=== PATIENT | male | born 1965 | race African-American/Black ===

== ENCOUNTER 2018-08-02 23:50 | Emergency (ER) | payer MEDICAID ==
--- NOTE | 2018-08-03 00:39 | EDM.PDOC ---
ED HPI GENERAL MEDICAL PROBLEM - General Chief Complaint: Lower Extremity Injury/Pain Stated Complaint: [facility] Time Seen by Provider: 08/03/18 00:03 Source of Information: Reports: Patient, RN Notes Reviewed - History of Present Illness INITIAL COMMENTS - FREE TEXT/NARRATIVE: patient scratched, removed a scab from lesion R lower leg, started "spurting blood" EMS called, applied a pressure dressing and it stopped. No hx of unusual bleeding problems. BP noted to be somewhat high, not on anything for Htn. Is on his feet a lot with his work Treatments RN FLOAT: Reports: Other Medication(s) - Related Data Allergies Allergy/AdvReac Type Severity Reaction Status Date / Time No Known Allergies Allergy Verified 08/02/18 23:59 Home Meds: Home Meds . [No Known Home Meds] 08/02/18 [History] Past Medical History - Past Health History Medical/Surgical History: Denies Medical/Surgical History Social & Family History - Family History Family Medical History: Noncontributory - Tobacco Use Smoking Status *Q: Current Every Day Smoker Years of Tobacco use: 41 Packs/Tins Daily: 0.2 Used Tobacco, but Quit: No - Caffeine Use Caffeine Use: Reports: Coffee - Alcohol Use Days Per Week of Alcohol Use: 3 Number of Drinks Per Day: 4 Total Drinks Per Week: 12 Date of Last Drink: 08/03/18 - Recreational Drug Use Recreational Drug Use: Yes Recreational Drug Type: Reports: Marijuana/Hashish Recreational Drug Use Frequency: Weekly Review of Systems - Review of Systems Review Of Systems: See Below Mouth/Throat: Reports: No Symptoms Respiratory: Denies: Shortness of Breath Cardiovascular: Denies: Chest Pain Musculoskeletal: Reports: Other (has a "puffy area of swelling L wrist for several wks.") Skin: Reports: Lesions (had bleeding from a varicosity R lower leg, now stopped) , Other Neurological: Denies: Trouble Speaking, Difficulty Walking, Weakness ED EXAM, GENERAL - Physical Exam Exam: See Below General Appearance: Alert, No Apparent Distress Throat/Mouth: Normal Inspection Head: Atraumatic Neck: Supple Respiratory/Chest: Lungs Clear Cardiovascular: Regular Rate, Rhythm Extremities: Pedal Edema (trace bilat. ), Joint Swelling (ganglion cyst present L dorsal wrist), Other (small raised papule R lower lateral leg, dried blood, no active bleeding). No: Leg Pain Neurological: Alert, No Motor/Sensory Deficits, Other (ambulatory without difficulty) Skin Exam: Warm, Dry Course - Vital Signs Last Recorded V/S: Last Vital Signs Temp 98.1 F 08/02/18 23:53 Pulse 65 08/02/18 23:53 Resp 13 08/02/18 23:53 BP 166/96 H 08/02/18 23:53 Pulse Ox 94 L 08/02/18 23:53 - Re-Assessments/Exams Free Text/Narrative Re-Assessment/Exam: 08/03/18 00:44 no bleeding at time of my exam, it will be cleaned, pressure dressing will be applied. Departure - Departure Time of Disposition: 00:35 Disposition: Home, Self-Care 01 Condition: Fair Clinical Impression: Hemorrhage of varicose veins of right lower extremity - Discharge Information Instructions: Varicose Veins Referrals: PCP,None [Primary Care Provider] - Forms: ED Department Discharge Additional Instructions: leave pressure dressing on R lower leg for 2 days to give this time to heal. Do not pick at any scab that may form. Elevate legs as much as possible when not working. Reapply similar pressure dressing if needed for any further bleeding. Your blood pressure is mildly elevated here in the ED. Try avoid all salty food. See provider at our [facility] medical clinic for a complete medical physical. Call [phone] for appointment.
== END 2018-08-03 01:16 | disposition home or self-care (01) ==
LOC: JD.ED 23:50
DX: I83.891 Varicose veins of right lower extremity with other complications (principal); F17.210 Nicotine dependence, cigarettes, uncomplicated
CPT/HCPCS: 99283